=== PATIENT | male | born 1970 | race Caucasian/White ===

== ENCOUNTER 2020-11-06 01:41 | Emergency (ER) | payer BC ==
[~2020-11-06] VITALS: Ht 167.6 cm; Wt 72.6 kg
[2020-11-06] MEDS ORDERED: GADOTERATE MEGLUMINE 10 MMOL/20 ML VIAL IV ONE (01:42)
--- NOTE | 2020-11-06 01:45 | NUR ---
PRESENTED TO THE ER FOR SYNCOPAL EPISODE. REPORTED HE FAINTED IN THE BATHROOM AND HIT THE BACK OF HIS HEAD. NOTED W/ SMALL LACERATION ON THE POSTERIOR HEAD. PT CURRENTLY A, OX4. WAS PLACED IN BED 3 ER, ON MONITOR. VSS. WILL CONT TO MONITOR .
[2020-11-06 02:15] LABS: BASOPHILS # (AUTO) 0.1 K/uL (0.0-0.2); BASOPHILS % (AUTO) 0.9 % (0.0-2.0); EOSINOPHILS % (AUTO) 2.1 % (0.0-6.0); HEMATOCRIT 37 % (39-51); HEMOGLOBIN 12.6 g/dL (13.5-17.5); LYMPHOCYTES # (AUTO) 2.3 K/uL (0.8-4.8); LYMPHOCYTES % (AUTO) 34.7 % (20.0-44.0); MEAN CORPUSCULAR HGB CONC 34 g/dl (31.0-36.0); MEAN CORPUSCULAR VOLUME 89 fL (80-96); MONOCYTES # (AUTO) 0.5 K/uL (0.1-1.30); NEUTROPHILS # (AUTO) 3.6 K/uL (1.8-8.9); NEUTROPHILS % (AUTO) 54.3 % (43.0-81.0); PLATELET COUNT (AUTO) 231 K/uL (150-450); RED BLOOD CELL COUNT(AUTO) 4.19 MIL/uL (4.5-6.0); WHITE BLOOD COUNT (AUTO) 6.6 K/uL (4.3-11.0)
[2020-11-06] MEDS ORDERED: TDAP [DIPH/PERTUSSIS/TET] 0.5 ML VIAL IM ONE ×2 (02:30→06:12)
[2020-11-06 02:37] LABS: CALCIUM, SERUM 9.2 mg/dL (8.5-10.1); CARBON DIOXIDE 30 mmol/L (21-32); CHLORIDE 107 mmol/L (98-107); GLUCOSE 108 mg/dL (74-106); POTASSIUM 5.1 mmol/L (3.5-5.1); SODIUM SERUM 144 mmol/L (136-145); UREA NITROGEN, BLOOD 11 mg/dL (7-18)
[2020-11-06 02:51] LABS: ALANINE AMINOTRANSFERASE 23 U/L (12-78); ALBUMIN 4.1 g/dL (3.4-5.0); ALKALINE PHOSPHATASE 72 U/L (46-116); ASPARTATE AMINOTRANSFERASE 22 U/L (15-37); BILIRUBIN,TOTAL 0.5 mg/dL (0.2-1.0); TOTAL PROTEIN, SERUM 6.9 g/dL (6.4-8.2)
--- NOTE | 2020-11-06 03:36 | NUR ---
CALLED [facility] FOR CT READ
--- NOTE | 2020-11-06 05:30 | NUR ---
per ed doctor, hold laceration repair until after MRI
--- NOTE | 2020-11-06 06:11 | NUR ---
MRI medical hx form from started, in chart
--- NOTE | 2020-11-06 06:38 | NUR ---
TEXTED DR. REYNAGA FOR MRI APPROVAL.
--- NOTE | 2020-11-06 07:26 | NUR ---
MRI APPROVED, [employer] NOTIFIED VIA TEXT.
--- NOTE | 2020-11-06 07:28 | NUR ---
Awaiting MRI Updated w/plan of care.
--- NOTE | 2020-11-06 09:57 | NUR ---
PT IS BACK FROM THE MRI.
--- NOTE | 2020-11-06 12:10 | NUR ---
Dr Johnson in tr evaluate pt- updated with plan of care.
[2020-11-06 12:34] VITALS: BP 110/60
--- NOTE | 2020-11-06 12:35 | NUR ---
Patient discharged to home in stable condition. Written and verbal after care instructions given. Patient verbalizes understanding of instruction.
== END 2020-11-06 12:35 | disposition home or self-care (01) ==
LOC: ER 01:41
DX: S01.81XA Laceration without foreign body of other part of head, initial encounter (principal); R55 Syncope and collapse; F12.10 Cannabis abuse, uncomplicated; F90.9 Attention-deficit hyperactivity disorder, unspecified type; E78.5 Hyperlipidemia, unspecified; R94.31 Abnormal electrocardiogram [ECG] [EKG]; W19.XXXA Unspecified fall, initial encounter; Y93.89 Activity, other specified; Y92.89 Other specified places as the place of occurrence of the external cause; Y99.8 Other external cause status
CPT/HCPCS: 36415; 70450; 70553; 80053; 84484; 85025; 90471; 90715; 93005; 99285; A6403; A9575